=== PATIENT | male | born 1960 | race African-American/Black ===

== ENCOUNTER 2020-08-02 22:41 | Emergency (ER) | payer MEDICAID ==
[~2020-08-02] VITALS: Ht 182.9 cm; Wt 100.0 kg
[2020-08-03] MEDS ORDERED: ACETAMINOPHEN 325MG TABLET PO ONE
[2020-08-03 01:05] LABS: CLARITY URINE CLEAR (CLEAR); COLOR URINE YELLOW (YELLOW); KETONES URINE NEGATIVE (NEGATIVE); LEUKOCYTE ESTERASE URINE NEGATIVE (NEGATIVE); NITRITE URINE NEGATIVE (NEGATIVE); OCCULT BLOOD URINE NEGATIVE (NEGATIVE); PH URINE 6.5 (4.5-8.0); PROTEIN URINE NEGATIVE (NEGATIVE); SPECIFIC GRAVITY URINE 1.005 (1.005-1.030); UROBILINOGEN URINE 0.2 E.U./dL (0.2-1.0)
[2020-08-03 01:49] LABS: HEMATOCRIT. 34.7 % (42.0-52.0); HEMOGLOBIN. 11.7 g/dL (14.0-18.0); MEAN CORPUSCULAR HEMOGLOBIN 35.3 pg (28.0-32.0); MEAN CORPUSCULAR VOLUME 104.6 fL (80.0-94.0); MEAN PLATELET VOLUME 8.2 fl (7.4-10.4); PLATELET 189 x1000/uL (130-400); RED BLOOD CELL COUNT 3.31 mill/uL (4.7-6.1); RED CELL DISTRIBUTION WIDTH 13.6 % (11.6-14.6)
[2020-08-03 01:55] LABS: CHLORIDE 108 mEq/L (98-107)
[2020-08-03 01:57] LABS: PROTHROMBIN TIME 10.9 sec (9.6-11.0)
[2020-08-03 02:00] LABS: ETHANOL BLOOD 217 mg/dL
[2020-08-03 02:33] LABS: PLATELET ESTIMATE NORMAL
[2020-08-03] MEDS ORDERED: IBUP-2028 MT (05:01)
[2020-08-03 05:15] VITALS: BP 121/74
[2020-08-03 08:09] LABS: *BENZODIAZEPINES SCREEN URINE NEGATIVE (NEGATIVE); *COCAINE SCREEN URINE NEGATIVE (NEGATIVE); CANNABINOID URINE SCREEN NEGATIVE (NEGATIVE)
[2020-08-03 08:10] LABS: *AMPHETAMINES SCREEN URINE NEGATIVE (NEGATIVE); *BARBITURATES SCREEN URINE NEGATIVE (NEGATIVE); METHADONE URINE SCREEN NEGATIVE (NEGATIVE); OPIATES URINE SCREEN NEGATIVE (NEGATIVE); PHENCYCLIDINE URINE SCREEN NEGATIVE (NEGATIVE)
== END 2020-08-03 05:20 | disposition home or self-care (01) ==
LOC: ER 22:58
DX: M25.551 Pain in right hip (principal); F10.129 Alcohol abuse with intoxication, unspecified; Y90.7 Blood alcohol level of 200-239 mg/100 ml; I10 Essential (primary) hypertension; W01.0XXA Fall on same level from slipping, tripping and stumbling without subsequent striking against object, initial encounter; Y93.01 Activity, walking, marching and hiking; Y92.9 Unspecified place or not applicable
CPT/HCPCS: 36415; 72192; 73501; 80053; 80305; 80320; 81003; 85025; 99285; G0480